=== PATIENT | male | born 1955 | race Hispanic/Latino ===

== ENCOUNTER 2018-01-09 05:16 | Emergency (ER) | payer MEDICARE, OTHER ==
[~2018-01-09] VITALS: Ht 175.3 cm; Wt 96.2 kg
[2018-01-09] MEDS ORDERED: VALTREX ONE (05:34)
--- NOTE | 2018-01-09 05:38 | ER.PDOC ---
General Chief Complaint: Skin Rash/Abscess Stated Complaint: SPIDER BITE Time seen by MD: 05:30 Source: patient Exam Limitations: no limitations History of Present Illness Initial Comments Pt developed a vesicular rash two days ago, painful, on left anterior lower quadrant Timing/Duration: 24 hours Severity: moderate Location: trunk Quality: painful Identified Cause: no Allergies: Coded Allergies: No Known Allergies (Unverified , 01/09/18) Past Medical History Medical History: diabetes Surgical History: no surgical history Social History Smoking: cigarettes, less than 1 pack/day Alcohol Use: none Drug Use: none Constitutional: no symptoms reported EENTM: no symptoms reported Respiratory: no symptoms reported Cardiovascular: no symptoms reported Gastrointestinal: no symptoms reported Genitourinary: no symptoms reported Musculoskeletal: no symptoms reported Skin: see HPI Psychiatric/Neurological: no symptoms reported Endocrine: no symptoms reported Hematologic/Lymphatic: no symptoms reported Physical Exam General Appearance: alert, no distress Skin: warm/dry, nml color Location: anterior, abdomen Character: vesicular, erythematous With: tenderness Extremities: non-tender, nml ROM, no edema EENT: eyes nml inspection, lips/gums nml, pharynx nml Neck: trachea midline, no swelling Respiratory: no resp. distress, breath sounds nml CVS: reg. rate & rhythm, heart sounds nml Abdomen: non-tender, no organomegaly Rectal: non-tender NEURO/PSYCH: oriented x 3, CN's nml as tested, motor nml, sensation nml, mood/ affect nml Departure Time of Disposition: 05:37 Disposition: 01 HOME, SELF-CARE Impression: Primary Impression: Herpes zoster with complication Condition: Stable Patient Instructions: Herpes Simplex Virus-SportsMed Referrals: PCP,UNKNOWN (PCP) PRIMARY CARE PROVIDER Duration or Time Spent with Pa: RENATE WESTON MD Jan 09, 2018 05:38
[2018-01-09] MEDS ORDERED: VALTREX PO STA (05:53)
[2018-01-09 06:09] VITALS: BP 133/76
== END 2018-01-09 06:05 | disposition home or self-care (01) ==
LOC: ER 05:16
DX: B02.8 Zoster with other complications (principal); F17.210 Nicotine dependence, cigarettes, uncomplicated; E11.9 Type 2 diabetes mellitus without complications
CPT/HCPCS: 99282